=== PATIENT | female | born 1955 | race Caucasian/White ===

== ENCOUNTER 2018-12-15 09:01 | Inpatient (IN) | payer MEDICARE, MEDICAID ==
[2018-12-08 16:52] LABS: BASOPHILS % (AUTO) 0.7 % (0-1); EOSINOPHILS # (AUTO) 0.3 X10'3 (0-0.9); EOSINOPHILS % (AUTO) 4.9 % (0-6); LYMPHOCYTES # (AUTO) 1.8 X10'3 (1.1-4.8); LYMPHOCYTES % (AUTO) 30.9 % (21-51); MEAN CORPUSCULAR HEMOGLOBIN 26.9 PG (27.0-31.0); MEAN CORPUSCULAR HGB CONC 33.2 g/dL (33.0-36.5); MEAN CORPUSCULAR VOLUME 80.9 FL (78-98); MEAN PLATELET VOLUME 7.6 FL (7.4-10.4); MONOCYTES # (AUTO) 0.5 X10'3 (0-0.9); MONOCYTES % (AUTO) 9.2 % (2-12); NEUTROPHILS # (AUTO) 3.1 X10'3 (1.8-7.7); NEUTROPHILS % (AUTO) 54.3 % (42-75); PRE OP HEMATOCRIT 33.3 % (35.0-45.0); PRE OP HEMOGLOBIN 11.1 g/dL (12.0-16.0); PRE OP PLATELET COUNT 398 X10'3 (140-440); RED BLOOD COUNT 4.12 X10'6 (4.20-5.60); RED CELL DISTRIBUTION WIDTH 13.4 % (11.5-14.5)
[2018-12-08 17:04] LABS: PRE OP PROTIME 10.1 SECONDS (9.0-12.0)
[2018-12-08 17:17] LABS: ALBUMIN 3.6 G/DL (3.4-5.0); ALBUMIN/GLOBULIN RATIO 0.9 (1.1-1.5); ALKALINE PHOSPHATASE 82 IU/L (46-116); BLOOD UREA NITROGEN 12 MG/DL (7-18); BUN/CREATININE RATIO 18.2 (6.6-38.0); CALCIUM 8.9 MG/DL (8.5-10.1); CHLORIDE 105 MMOL/L (99-107); CREATININE 0.66 MG/DL (0.40-0.90); PRE OP ALT 19 U/L (30-65); PRE OP ANION GAP 9 (8-16); PRE OP AST 20 U/L (10-37); PRE OP BILIRUB, TOTAL 0.3 MG/DL (0.0-1.0); PRE OP GLUCOSE 86 MG/DL (70-104); PRE OP POTASSIUM 3.6 MMOL/L (3.4-5.1); PRE OP SODIUM 143 MMOL/L (135-145); TOTAL CARBON DIOXIDE 28.8 MMOL/L (24-32); TOTAL PROTEIN 7.5 G/DL (6.4-8.2); eGFR > 90 ML/MIN
[~2018-12-15] VITALS: Ht 160 cm; Wt 80.3 kg
[2018-12-15] VITALS (22 sets, daily range): BP systolic 96–132; BP diastolic 56–97
[~2018-12-15 09:01] MED LIST: ALLO100T PO; BUPR1PAT TOP; CETI10TA14 PO; CYCL-394 PO; FLUT10SP NAS; FLUTICASONE FUROATE NAS SCH; GABA-338 PO; HYDROcodone/acetaminophen 10/325mg tab PO PRN; HYDROmorphone 1 mg/ml syringe IV PRN; HYDROmorphone inj. 0.5 MG/0.5 ML DISP.SYRIN IV PRN; IBUP-1984 PO; LEVO100T78 PO; MONT10TA24 PO; PREG75CA30 PO; PREVCR VG; RANI150C11 PO; acetaminophen 325mg tablet PO ONE; acetaminophen 325mg tablet PO PRN; bisacodyl 10mg suppository rectal RC PRN; celeCOXIB 100mg capsule PO ONE; diphenhydrAMINE 25mg capsule PO PRN; gabapentin 300mg capsule PO ONE; magnesium hydroxide 30ml (MOM) UD suspension PO PRN; metoclopramide 5 mg/ml inj IV ONE; non-formulary drug (Buprenorphine (Butrans) 1 PATCH) TOP SCH; ondansetron/PF 4mg/2ml inj IV PRN; oxyCODONE SR 10mg (sust. release) tab -2 tabs (20mg) PO ONE
[2018-12-15] MEDS ORDERED: vancomycin inj 1,500 MG in normal saline 300ml IV soln IV ONE (10:00)
[2018-12-15] MEDS ORDERED: famotidine 20mg tablet PO ONE (10:00)
[2018-12-15] MEDS ORDERED: VANCOMYCIN INJ 1000 MG in NORMAL SALINE 250ml IV.SOLN IV ONE (10:00)
[2018-12-15] MEDS ORDERED: cefazolin/dext.iso 2gm/50ml 50 ML IV ONE (10:00)
[2018-12-15] MEDS ORDERED: tranexamic acid inj. 1,000 MG in normal saline 100 ML IV ONE (10:00)
[2018-12-15] MEDS ORDERED: ringers solution, lacted 1,000 ML IV SCH ×2 (10:00→12:57)
[2018-12-15] MEDS ORDERED: epiNEPHrine 1 mg/ml inj ONE (11:18)
[2018-12-15] MEDS ORDERED: ketorolac trometh. 30mg/ml inj. ONE (11:18)
[2018-12-15] MEDS ORDERED: cloNIDine hcl/PF 100mcg/ml inj ONE (11:18)
[2018-12-15] MEDS ORDERED: vancomycin 1,000mg inj ONE (11:19)
[2018-12-15] MEDS ORDERED: ROPIVAcaine 0.5% (5mg/ml) 30ml vial ONE (11:19)
[2018-12-15] MEDS ORDERED: tetracaine 1% (10mg/ml) pres. free inj. ONE (11:21)
[2018-12-15] MEDS ORDERED: propofol 10mg/ml 20ml vial IV ONE (12:05)
[2018-12-15] MEDS ORDERED: phenylephrine 10mg/ml inj. ONE (12:05)
[2018-12-15] MEDS ORDERED: fentaNYL/PF 50MCG/1 ML 2ML syringe ONE (12:07)
[2018-12-15] MEDS ORDERED: MIDAZolam 5mg/5ml vial ONE (12:07)
[2018-12-15] MEDS ORDERED: morphine 4 MG/ML inj SYRINge IV PRN ×2 (13:00)
[2018-12-15] MEDS ORDERED: hydrALAZINE 20mg/ml inj. IV PRN ×2 (13:00)
[2018-12-15] MEDS ORDERED: ondansetron/PF 4mg/2ml inj IV PRN ×2 (13:00→13:05)
[2018-12-15] MEDS ORDERED: fentaNYL/PF 50MCG/1 ML 2ML syringe IV PRN ×2 (13:00)
[2018-12-15] MEDS ORDERED: labetalol 20mg/4ml (5mg/ml) syringe IV PRN (13:00)
[2018-12-15] MEDS ORDERED: diphenhydrAMINE 50 mg/ml inj IV PRN (13:05)
--- NOTE | 2018-12-15 13:40 | NUR ---
Received from OR via BED, accompanied by Anesthesiologist DR COOPER and report given by Anesthesiologist. PT DROWSY, DENIES PAIN, RIGHT HIP W/DRSG CDI, MAYDA DRAIN W/GREEN LIGHT ILLUMINATION, POWDER PACK, RIGHT KNEE W/BRACE, REN CATHETER TO GRAVITY DRAINAGE W/YELLOW URINE. Addendum: 12/15/18 at 1508 by Sparkle Haines RN Amended: Links added.
[2018-12-15] MEDS: potassium cl 20mEq in 1/2 NS 1,000 ML IV SCH ×3 (15:31→22:25)
[2018-12-15] MEDS: cyclobenzaprine 10mg tablet PO SCH ×3 (15:33→19:55)
[2018-12-15] MEDS: gabapentin 300mg capsule PO SCH ×4 (15:33→19:55)
[2018-12-15] MEDS: ascorbic acid 500mg tablet PO SCH ×2 (15:34→19:54)
[2018-12-15] MEDS: multivitamins, therapeutics tablet PO SCH (15:34)
[2018-12-15] MEDS: cetirizine 10mg tablet PO SCH (15:34)
[2018-12-15] MEDS: allopurinol 100mg tablet PO SCH (15:34)
[2018-12-15] MEDS: levoTHYROXINE 100mcg tablet PO SCH (15:34)
[2018-12-15] MEDS: montelukast 10mg tablet PO SCH (15:34)
[2018-12-15] MEDS: aspirin 325mg tablet PO SCH (15:35)
--- NOTE | 2018-12-15 15:40 | NUR ---
Report called to receiving nurse. Transferred via BED, 1 BAG OF Belongings, GLASSES SENT W/PT TO ROOM 4007, RECEIVING RN AT BEDSIDE TO RECEIVE PT, BLL, CALL LIGHT GIVEN, SIDE RAILS UP X 2. Special Issues communicated to receiving nurse. YES. Addendum: 12/15/18 at 1554 by Sparkle Haines RN Amended: Links added.
[2018-12-15] MEDS ORDERED: tranexamic acid inj. 800 MG in normal saline 100ml IV soln 100 ML IV ONE (16:40)
[2018-12-15] MEDS: HYDROcodone/acetaminophen 10/325mg tab PO PRN ×2 (16:47→20:34)
[2018-12-15] MEDS: diphenhydrAMINE 25mg capsule PO PRN ×2 (16:49→22:39)
[2018-12-15] MEDS ORDERED: Buprenorphine (Butrans) 1 PATCH TP SCH (16:55)
[2018-12-15] MEDS: cefazolin/dext.iso 2gm/50ml 100 ML IV SCH (17:45)
[2018-12-15] MEDS: sennosides 8.6mg tablet PO SCH (20:34)
[2018-12-16] MEDS: HYDROcodone/acetaminophen 10/325mg tab PO PRN ×6 (00:46→20:53)
[2018-12-16] MEDS: cefazolin/dext.iso 2gm/50ml 100 ML IV SCH (00:46)
[2018-12-16 02:00] VITALS: BP 129/72
[2018-12-16] MEDS: diphenhydrAMINE 25mg capsule PO PRN (04:34)
[2018-12-16 04:41] LABS: BASOPHILS % (AUTO) 0.4 % (0-1); EOSINOPHILS # (AUTO) 0.1 X10'3 (0-0.9); EOSINOPHILS % (AUTO) 2.1 % (0-6); HEMATOCRIT 30.3 % (35.0-45.0); HEMOGLOBIN 10.2 g/dl (12.0-16.0); LYMPHOCYTES # (AUTO) 1.1 X10'3 (1.1-4.8); LYMPHOCYTES % (AUTO) 16.6 % (21-51); MEAN CORPUSCULAR HEMOGLOBIN 27.1 PG (27.0-31.0); MEAN CORPUSCULAR HGB CONC 33.6 g/dL (33.0-36.5); MEAN CORPUSCULAR VOLUME 80.7 FL (78-98); MEAN PLATELET VOLUME 8.2 FL (7.4-10.4); MONOCYTES # (AUTO) 0.6 X10'3 (0-0.9); MONOCYTES % (AUTO) 8.6 % (2-12); NEUTROPHILS # (AUTO) 4.8 X10'3 (1.8-7.7); NEUTROPHILS % (AUTO) 72.3 % (42-75); PLATELET COUNT 368 X10'3 (140-440); RED BLOOD COUNT 3.75 X10'6 (4.20-5.60); RED CELL DISTRIBUTION WIDTH 13.4 % (11.5-14.5); WHITE BLOOD COUNT 6.6 X10'3 (4.5-11.0)
[2018-12-16 04:45] LABS: ANION GAP 7 (8-16); CHLORIDE 106 MMOL/L (99-107); POTASSIUM 4.1 MMOL/L (3.5-5.1); SODIUM 142 MMOL/L (135-145); TOTAL CARBON DIOXIDE 28.6 MMOL/L (24-32)
[2018-12-16 06:00] VITALS: BP 130/80
--- NOTE | 2018-12-16 06:11 | NUR ---
RECEIVED REPORT FROM VIN, RN
--- NOTE | 2018-12-16 06:30 | NUR ---
RECEIVED REPORT FROM JAM NICE Addendum: 12/16/18 at 1554 by Katrin Estrada RN VIN AMIN NURSE
[2018-12-16] MEDS: fluticasone nasal spray 16GM bottle NS SCH (07:47)
[2018-12-16] MEDS: cyclobenzaprine 10mg tablet PO SCH ×3 (07:47→20:53)
[2018-12-16] MEDS: potassium cl 20mEq in 1/2 NS 1,000 ML IV SCH ×2 (07:47→14:25)
[2018-12-16] MEDS: ascorbic acid 500mg tablet PO SCH ×2 (07:48→20:53)
[2018-12-16] MEDS: allopurinol 100mg tablet PO SCH (07:48)
[2018-12-16] MEDS: cetirizine 10mg tablet PO SCH (07:48)
[2018-12-16] MEDS: multivitamins, therapeutics tablet PO SCH (07:48)
[2018-12-16] MEDS: levoTHYROXINE 100mcg tablet PO SCH (07:48)
[2018-12-16] MEDS: montelukast 10mg tablet PO SCH (07:48)
[2018-12-16] MEDS: gabapentin 300mg capsule PO SCH ×4 (07:48→20:52)
--- NOTE | 2018-12-16 07:49 | NUR ---
see mar in pt chart for am med
[2018-12-16] MEDS ORDERED: Buprenorphine (Butrans) 1 PATCH TP SCH (08:00)
[2018-12-16] MEDS: hydrOXYzine 25 MG tablet PO PRN ×2 (09:18→15:13)
[2018-12-16] MEDS: aspirin 325mg tablet PO SCH (09:18)
[2018-12-16 10:00] VITALS: BP 125/63
[2018-12-16 14:00] VITALS: BP 91/55
[2018-12-16 18:00] VITALS: BP 106/58
--- NOTE | 2018-12-16 18:10 | NUR ---
gave report to anthony carreno
[2018-12-16] MEDS: sennosides 8.6mg tablet PO SCH (20:52)
[2018-12-16 22:00] VITALS: BP 87/54
[2018-12-17] MEDS: HYDROcodone/acetaminophen 10/325mg tab PO PRN ×2 (05:06→09:13)
[2018-12-17 06:00] VITALS: BP 118/67
--- NOTE | 2018-12-17 06:09 | NUR ---
received report from anthony carreno
--- NOTE | 2018-12-17 06:10 | NUR ---
report given to JAM [place].
[2018-12-17 06:23] LABS: BASOPHILS % (AUTO) 0.3 % (0-1); EOSINOPHILS # (AUTO) 0.3 X10'3 (0-0.9); EOSINOPHILS % (AUTO) 4.5 % (0-6); HEMATOCRIT 29.9 % (35.0-45.0); LYMPHOCYTES # (AUTO) 1.1 X10'3 (1.1-4.8); LYMPHOCYTES % (AUTO) 15.4 % (21-51); MEAN CORPUSCULAR HEMOGLOBIN 26.8 PG (27.0-31.0); MEAN CORPUSCULAR HGB CONC 33.6 g/dL (33.0-36.5); MONOCYTES # (AUTO) 0.7 X10'3 (0-0.9); MONOCYTES % (AUTO) 10.4 % (2-12); NEUTROPHILS # (AUTO) 4.8 X10'3 (1.8-7.7); NEUTROPHILS % (AUTO) 69.4 % (42-75); PLATELET COUNT 378 X10'3 (140-440); RED BLOOD COUNT 3.74 X10'6 (4.20-5.60); RED CELL DISTRIBUTION WIDTH 13.7 % (11.5-14.5); WHITE BLOOD COUNT 6.9 X10'3 (4.5-11.0)
[2018-12-17] MEDS: fluticasone nasal spray 16GM bottle NS SCH (07:12)
[2018-12-17] MEDS: gabapentin 300mg capsule PO SCH (07:13)
[2018-12-17] MEDS: aspirin 325mg tablet PO SCH (07:13)
[2018-12-17] MEDS: hydrOXYzine 25 MG tablet PO PRN (07:13)
[2018-12-17] MEDS: cetirizine 10mg tablet PO SCH (07:14)
[2018-12-17] MEDS: cyclobenzaprine 10mg tablet PO SCH (07:14)
[2018-12-17] MEDS: levoTHYROXINE 100mcg tablet PO SCH (07:14)
[2018-12-17] MEDS: allopurinol 100mg tablet PO SCH (07:14)
[2018-12-17] MEDS: montelukast 10mg tablet PO SCH (07:14)
[2018-12-17] MEDS: multivitamins, therapeutics tablet PO SCH (07:15)
[2018-12-17] MEDS: ascorbic acid 500mg tablet PO SCH (07:15)
[2018-12-17] MEDS: potassium cl 20mEq in 1/2 NS 1,000 ML IV SCH (07:18)
[2018-12-17] MEDS ORDERED: ASPI-1 PO (07:57)
[2018-12-17] MEDS ORDERED: estrogens, conjug. vaginal cream 45gm tube VG SCH (08:00)
[2018-12-17 10:00] VITALS: BP 102/44
--- NOTE | 2018-12-17 11:22 | NUR ---
pt d/c with instructions, understanding of instructions and w/all belongings in wheelchair accompanied by fam member go private vehicle to go home and f/u w/pcp
== END 2018-12-17 11:15 | disposition home or self-care (01) | DRG 470 ==
LOC: PAS IN 09:01 → EDSTATUS 12:30 → ORTHO 4S 15:30
PROVIDERS: ADMIT Orthopaedic Surgery; ATTEND Orthopaedic Surgery
PROC: 0SR906Z Replacement of Right Hip Joint with Oxidized Zirconium on Polyethylene Synthetic Substitute, Open Approach (ICD-10-PCS; principal; 2018-12-15 12:08)
DX: M16.11 Unilateral primary osteoarthritis, right hip (principal); D62 Acute posthemorrhagic anemia; E03.9 Hypothyroidism, unspecified; Z96.653 Presence of artificial knee joint, bilateral; G89.4 Chronic pain syndrome; M10.9 Gout, unspecified; M54.9 Dorsalgia, unspecified; Z96.612 Presence of left artificial shoulder joint; K21.9 Gastro-esophageal reflux disease without esophagitis; Z79.82 Long term (current) use of aspirin; Z87.891 Personal history of nicotine dependence; Z88.8 Allergy status to other drugs, medicaments and biological substances; Z79.899 Other long term (current) drug therapy; Z79.84 Long term (current) use of oral hypoglycemic drugs
CPT/HCPCS: 36415; 71046; 72170; 80051; 80053; 82948; 84443; 85025; 85610; 85730; 86885; 86900; 86901; 87081; 93005; 97110; 97116; 97161; 97530; A4615; A7000; C1758; C1776; G0378; J0171; J0735; J1200; J1885; J2250; J2370; J2704; J2765; J2795; J3010; J3370; J3480; J7120; Q0163; Z7610

== ENCOUNTER 2022-10-14 12:24 | Emergency (ER) | payer MEDICARE, MEDICAID ==
[~2022-10-14] VITALS: Ht 160 cm; Wt 81.8 kg
[~2022-10-14 12:24] MED LIST changes: +BIOT5000 PO; -BUPR1PAT TOP; +BUPR450F2 PO; -CETI10TA14 PO; +FAMO20TA8 PO; -FLUTICASONE FUROATE NAS SCH; -HYDROcodone/acetaminophen 10/325mg tab PO PRN; -HYDROmorphone 1 mg/ml syringe IV PRN; -HYDROmorphone inj. 0.5 MG/0.5 ML DISP.SYRIN IV PRN; -IBUP-1984 PO; +MAGN400T52 PO; +MELA5TAB12 PO; +MONT-40 PO; -MONT10TA24 PO; +PREG150C46 PO; -PREG75CA30 PO; -PREVCR VG; -RANI150C11 PO; -acetaminophen 325mg tablet PO ONE; -acetaminophen 325mg tablet PO PRN; -bisacodyl 10mg suppository rectal RC PRN; -celeCOXIB 100mg capsule PO ONE; -diphenhydrAMINE 25mg capsule PO PRN; -gabapentin 300mg capsule PO ONE; -magnesium hydroxide 30ml (MOM) UD suspension PO PRN; -metoclopramide 5 mg/ml inj IV ONE; -non-formulary drug (Buprenorphine (Butrans) 1 PATCH) TOP SCH; -ondansetron/PF 4mg/2ml inj IV PRN; -oxyCODONE SR 10mg (sust. release) tab -2 tabs (20mg) PO ONE
--- NOTE | 2022-10-14 12:43 | NUR ---
EKG BEING DONE AT THIS TIME.
--- NOTE | 2022-10-14 12:56 | NUR ---
RN PERFORMED SWALLOW SCREEN WITH PT AND GAVE 240 CC OF JUICE FOR BG 75. PT WAS ABLE TO SWALLOW WITH NO COMP. RN PERFORMED NEURO ASSESSMENT AND PT HAS NO DEFICITS.
[2022-10-14 13:04] LABS: BASOPHILS % (AUTO) 0.6 % (0-1); EOSINOPHILS # (AUTO) 0.2 X10'3 (0-0.9); EOSINOPHILS % (AUTO) 2.7 % (0-6); HEMATOCRIT 34.8 % (35.0-45.0); HEMOGLOBIN 11.4 g/dl (12.0-16.0); LYMPHOCYTES # (AUTO) 1.7 X10'3 (1.1-4.8); LYMPHOCYTES % (AUTO) 29.6 % (21-51); MEAN CORPUSCULAR HEMOGLOBIN 26.4 PG (27.0-31.0); MEAN CORPUSCULAR HGB CONC 32.9 g/dL (33.0-36.5); MEAN CORPUSCULAR VOLUME 80.2 FL (78-98); MEAN PLATELET VOLUME 7.5 FL (7.4-10.4); MONOCYTES # (AUTO) 0.6 X10'3 (0-0.9); MONOCYTES % (AUTO) 10.5 % (2-12); NEUTROPHILS # (AUTO) 3.3 X10'3 (1.8-7.7); NEUTROPHILS % (AUTO) 56.6 % (42-75); PLATELET COUNT 350 X10'3 (140-440); RED BLOOD COUNT 4.34 X10'6 (4.20-5.60); RED CELL DISTRIBUTION WIDTH 14.5 % (11.5-14.5); WHITE BLOOD COUNT 5.8 X10'3 (4.5-11.0)
[2022-10-14 13:17] LABS: ALANINE AMINOTRANSFERASE 17 U/L (12-78); ALBUMIN 3.1 G/DL (3.4-5.0); ALKALINE PHOSPHATASE 73 IU/L (46-116); ANION GAP 8 (8-16); ASPARTATE AMINO TRANSFERASE 16 U/L (10-37); BILIRUBIN,TOTAL 0.3 MG/DL (0.1-1.0); BLOOD UREA NITROGEN 13 MG/DL (7-18); CALCIUM 8.2 MG/DL (8.5-10.1); CHLORIDE 106 MMOL/L (99-107); CREATININE 0.62 MG/DL (0.40-0.90); GLUCOSE 85 MG/DL (70-104); MAGNESIUM 1.9 MG/DL (1.5-2.4); POTASSIUM 3.7 MMOL/L (3.5-5.1); SODIUM 141 MMOL/L (135-145); TOTAL CARBON DIOXIDE 27.4 MMOL/L (24-32); TOTAL PROTEIN 6.3 G/DL (6.4-8.2); eCRCL 75 ML/MIN; eGFR > 90 ML/MIN
[2022-10-14] MEDS ORDERED: dexamethasone sod phosphate 10mg/ml inj IV STA (14:56)
--- NOTE | 2022-10-14 15:45 | NUR ---
MRI INQ IF PT HAS A SPINAL STIMULATOR. RN OBTAINED CARD FOR IMPLANTED STIMULATOR AND FAXED A COPY TO MRI. RN NOTIFIED DR LAWRENCE THAT MRI MAY NOT BE ABLE TO BE COMPLETED D/T STIMULATOR.
--- NOTE | 2022-10-14 16:10 | NUR ---
RN CONFIRMED WITH MRI THAT MRI CANNOT BE DONE D/T STIMULATOR. PER EMILY WITH MRI DR LAWRENCE HAS CANCELLED MRI. RN WILL NOTIFY PT.
[2022-10-14 17:16] LABS: BILIRUBIN,URINE NEGATIVE (Neg); CLARITY,URINE SLIGHTLY CLOUDY (Clear); COLOR,URINE YELLOW (Yellow); GLUCOSE, URINE NEGATIVE (Neg); KETONES,URINE NEGATIVE (Neg); LEUKOCYTE ESTERASE ,URINE SMALL (Neg); NITRITES, URINE NEGATIVE (Neg); OCCULT BLOOD,URINE NEGATIVE (Neg); PH,URINE 6.5 (4.8-8.0); PROTEIN,URINE NEGATIVE (Neg); UROBILINOGEN,URINE 0.2 E.U/dL (0.2-1.0)
[2022-10-14 17:17] LABS: UA COLLECTION TYPE CLN CATCH MIDSTREAM
[2022-10-14 17:31] LABS: BACTERIA,URINE FEW /HPF (Neg); MUCUS STRANDS MODERATE /LPF (Neg); RBC,URINE 0-2 /HPF (0-2); SQUAMOUS EPITHELIAL CELL,UR MODERATE /LPF (FEW); TRANSITIONAL EPI CELLS,URINE FEW /HPF
[2022-10-14] MEDS ORDERED: iohexol 300mg/ml 100ml inj. ONE (17:58)
[2022-10-14] MEDS ORDERED: HYDROcodone/acetaminophen 5mg/325mg tablet PO ONE (19:15)
[2022-10-14 20:05] VITALS: TEMP 98.6
[2022-10-14 20:16] LABS: C-REACTIVE PROTEIN 1.26 MG/DL (0.0-0.5)
[2022-10-14] MEDS ORDERED: morphine 4 MG/ML inj SYRINge IV ONE (21:45)
[2022-10-14 22:12] VITALS: BP 137/80; PULSE 83; RESP 16; O2SAT 98
--- NOTE | 2022-10-14 22:28 | NUR ---
FED PT SNACK
--- NOTE | 2022-10-14 22:28 | NUR ---
REPORT CALLED TO JAMES NURSE FREDA
--- NOTE | 2022-10-14 22:52 | NUR ---
FLIGHT CREW AT BEDSIDE.
== END 2022-10-14 22:57 | disposition short-term general hospital (02) ==
LOC: ER 12:24
DX: R22.0 Localized swelling, mass and lump, head (principal); Z88.8 Allergy status to other drugs, medicaments and biological substances; G89.29 Other chronic pain; M54.9 Dorsalgia, unspecified
CPT/HCPCS: 36415; 70450; 71045; 80053; 81001; 82948; 83735; 84145; 85025; 86140; 87088; 93005; 96374; 96375; 99285; J1100; J2270; J3490; Q9967

== ENCOUNTER 2023-08-02 11:36 | Emergency (ER) | payer MEDICARE, MEDICAID ==
[~2023-08-02] VITALS: Ht 160 cm; Wt 90.9 kg
[~2023-08-02 11:36] MED LIST changes: -PREG150C46 PO; +PREG150C47 PO
[2023-08-02 11:38] VITALS: TEMP 98.6
[2023-08-02 12:50] LABS: BASOPHILS % (AUTO) 0.3 % (0-1); EOSINOPHILS % (AUTO) 0.3 % (0-6); HEMATOCRIT 38.4 % (35.0-45.0); HEMOGLOBIN 12.6 g/dl (12.0-16.0); LYMPHOCYTES # (AUTO) 0.4 X10'3 (1.1-4.8); LYMPHOCYTES % (AUTO) 4.6 % (21-51); MEAN CORPUSCULAR HEMOGLOBIN 30.1 PG (27.0-31.0); MEAN CORPUSCULAR HGB CONC 32.9 g/dL (33.0-36.5); MEAN CORPUSCULAR VOLUME 91.4 FL (78-98); MEAN PLATELET VOLUME 6.4 FL (7.4-10.4); MONOCYTES # (AUTO) 0.6 X10'3 (0-0.9); MONOCYTES % (AUTO) 6.2 % (2-12); NEUTROPHILS # (AUTO) 8.4 X10'3 (1.8-7.7); NEUTROPHILS % (AUTO) 88.6 % (42-75); PLATELET COUNT 295 X10'3 (140-440); RED CELL DISTRIBUTION WIDTH 15.3 % (11.5-14.5); WHITE BLOOD COUNT 9.5 X10'3 (4.5-11.0)
[2023-08-02 13:01] LABS: ALBUMIN 3.1 G/DL (3.4-5.0); ANION GAP 9 (8-16); BLOOD UREA NITROGEN 18 MG/DL (7-18); CHLORIDE 101 MMOL/L (99-107); GLUCOSE 102 MG/DL (70-104); POTASSIUM 3.2 MMOL/L (3.5-5.1); SODIUM 140 MMOL/L (135-145); TOTAL CARBON DIOXIDE 29.9 MMOL/L (24-32); eCRCL 76 ML/MIN; eGFR > 90 ML/MIN
[2023-08-02] MEDS ORDERED: iohexol 300mg/ml 100ml inj. ONE (13:05)
[2023-08-02 13:43] LABS: ANISOCYTOSIS 1+; PLATELET ESTIMATE NORMAL; TOTAL CELLS COUNTED 100
[2023-08-02 14:00] VITALS: BP 126/82; PULSE 86; RESP 15; O2SAT 96
[2023-08-02] MEDS: dexamethasone sod phosphate 10mg/ml inj IV STA (14:04)
[2023-08-02 14:12] LABS: BILIRUBIN,URINE NEGATIVE (Neg); CLARITY,URINE CLEAR (Clear); COLOR,URINE YELLOW (Yellow); GLUCOSE, URINE NEGATIVE (Neg); KETONES,URINE NEGATIVE (Neg); LEUKOCYTE ESTERASE ,URINE NEGATIVE (Neg); NITRITES, URINE NEGATIVE (Neg); OCCULT BLOOD,URINE NEGATIVE (Neg); PROTEIN,URINE NEGATIVE (Neg); UROBILINOGEN,URINE 0.2 E.U/dL (0.2-1.0)
[2023-08-02 14:15] LABS: UA COLLECTION TYPE STRAIGHT CATH
== END 2023-08-02 15:46 | disposition home or self-care (01) ==
LOC: ER 11:36
DX: C79.31 Secondary malignant neoplasm of brain (principal); G93.6 Cerebral edema; R53.1 Weakness; R13.19 Other dysphagia; I10 Essential (primary) hypertension; G89.29 Other chronic pain; M54.9 Dorsalgia, unspecified; Z88.8 Allergy status to other drugs, medicaments and biological substances; Z79.899 Other long term (current) drug therapy; Z79.52 Long term (current) use of systemic steroids; Z79.51 Long term (current) use of inhaled steroids
CPT/HCPCS: 36415; 70470; 71045; 80048; 81003; 85007; 85025; 96374; 99285; J1100; J3490; Q9967